=== PATIENT | male | born 1970 | race Caucasian/White ===

== ENCOUNTER 2023-02-15 10:16 | Inpatient (IN) ==
--- NOTE | 2023-02-15 10:23 | Emergency Department Note ---
HPI General Chief complaint: Recheck/Abnormal Lab/Rx Stated complaint: abnormal lab Time Seen by Provider: 02/15/23 10:22 Source: patient Mode of arrival: ambulatory Limitations: no limitations History of Present Illness HPI Narrative: Narrative: Patient is a 52-year-old male with a history of hypertension and hyperlipidemia who presents to the emergency department due to concern for kidney failure. He states that he was supposed to have surgery on his left ankle this morning because of a fracture, but that his labs showed a creatinine of 4.8. He states that this was repeated and still high, so he was sent to the emergency department. He denies any symptoms at this time aside from left ankle pain. He states that he did have imaging a couple of weeks ago because of a similar situation with an elevated creatinine. At that time he was found to have kidney stones, but he did not have any hydronephrosis. He does state that he has been taking a lot of medications for his pain from his ankle fracture. He states that he has been taking naproxen, Motrin, and then was given a prescription for meloxicam. He states that he has taken all of these medications, and has taken them at the same time. He denies any other concerns or symptoms. Related Data Home Medications Medication Instructions Recorded Confirmed ibuprofen 200 mg capsule (Motrin 200 mg PO Q6H PRN 02/19/22 02/11/23 IB) amitriptyline 10 mg tablet 10 mg PO QHS 03/28/22 02/11/23 duloxetine 60 mg capsule,delayed 60 mg PO QDAY 03/28/22 02/11/23 release insulin NPH isoph U-100 human 100 5 unit subcut QAM 03/28/22 02/11/23 unit/mL (3 mL) subcutaneous pen (Novolin N FlexPen) insulin glargine 100 unit/mL (3 55 unit subcut BID 03/28/22 02/11/23 mL) subcutaneous pen lidocaine 5 % topical patch 1 patch topical QDAY 03/28/22 02/11/23 lisinopril 20 mg tablet 20 mg PO QDAY 03/28/22 02/11/23 magnesium oxide 420 mg tablet 420 mg PO QDAY 03/28/22 02/11/23 mercaptopurine 50 mg tablet 50 mg PO QDAY 03/28/22 02/11/23 metformin 1,000 mg tablet 1,000 mg PO BID 03/28/22 02/11/23 sildenafil 100 mg tablet 100 mg PO QDAY PRN 03/28/22 02/11/23 Previous Rx's Medication Instructions Recorded gabapentin 300 mg capsule 300 mg PO TID #90 caps 06/04/22 (Neurontin) cyclobenzaprine 10 mg tablet 10 mg PO BID PRN muscle spasm #30 06/18/22 tabs oxycodone-acetaminophen 10 mg-325 1 tab PO TID PRN pain #90 tabs 06/18/22 mg tablet (Percocet) hydrochlorothiazide 25 mg tablet 25 mg PO QAM #30 tabs 10/25/22 hydrocodone 5 mg-acetaminophen 325 1 - 2 tab PO Q6H PRN pain #12 tabs 12/04/22 mg tablet ondansetron 8 mg disintegrating 8 mg PO Q8H PRN nausea and 12/04/22 tablet vomiting #12 tabs prednisone 20 mg tablet 60 mg PO QDAY Panniculitis #15 tabs 12/04/22 Allergies Allergy/AdvReac Type Severity Reaction Status Date / Time infliximab-dyyb AdvReac Mild Hypotension Verified 02/15/23 08:08 [From Inflectra] Review of Systems ROS ROS Narrative: Narrative: Constitutional: Denies fever or weakness Eyes: Denies eye pain or vision change ENT ED: Denies throat pain or rhinorrhea Cardiovascular: Denies chest pain, dyspnea on exertion, orthopnea or edema Respiratory: Denies shortness of breath or cough Gastrointestinal: Denies abdominal pain, nausea, vomiting, diarrhea, constipation, hematochezia or melena Genitourinary: Denies dysuria, frequency or hematuria Musculoskeletal: Reports joint pain (Left ankle); Denies back pain or myalgia Integumentary: Denies rash or lesions Neurological: Denies headache, weakness, numbness, confusion, abnormal gait or dizziness [facility] Narrative Patient History Narrative: Narrative: Medical/Surgical/Family History All Active Problems (Updated 02/15/23 @ 15:31 by Jake Suazo MD) CHAD (acute kidney injury) (Acute) Anemia (Acute) Anemia, macrocytic (Acute) T2DM (type 2 diabetes mellitus) (Acute) Medial malleolar fracture (Acute) Closed left fibular fracture (Acute) Igquk-vb-wruqhvs kidney injury (Acute) Acute kidney injury (Acute) Panniculitis (Acute) Dehydration (Acute) Nausea, vomiting, and diarrhea (Acute) Abnormal finding on imaging of liver (Acute) Nodule of lower lobe of right lung (Acute) Abdominal pain (Acute) Cervical myelopathy (Acute) PTSD (post-traumatic stress disorder) (Chronic) Depression (Chronic) Anxiety (Chronic) GERD (gastroesophageal reflux disease) (Chronic) Hypertension (Chronic) Ulcerative colitis (Chronic) Rib pain (Chronic) Recurrent major depression (Chronic) Obstructive sleep apnea (Chronic) Other low back pain (Chronic) Injury of long head of biceps (Chronic) Pain of left iliac fossa (Chronic) Knee pain (Chronic) Hypomagnesemia (Chronic) Hyperlipidemia (Chronic) Erectile dysfunction (Chronic) Disorder of nail (Chronic) Diabetes mellitus (Chronic) Closed fracture of one rib (Chronic) Chronic post-traumatic stress disorder (Chronic) Benign essential hypertension (Chronic) Adjustment disorder (Chronic) Hostile behavior (Chronic) Suicidal intent (Chronic) Neck pain (Chronic) Alcohol intoxication (Chronic) Acute neck pain (Chronic) Radiculopathy affecting upper extremity (Chronic) Cervical radiculopathy (Acute) Chronic neck and back pain (Chronic) Alcohol intoxication (Chronic) Acute hyperglycemia (Chronic) Acute dehydration (Chronic) Muscle spasm of back (Chronic) Chronic back pain (Chronic) Herpes zoster (Chronic) Medical History Adjustment disorder Anxiety Benign essential hypertension Cervical myelopathy Chronic back pain Chronic post-traumatic stress disorder Closed fracture of one rib Depression Diabetes mellitus Disorder of nail Erectile dysfunction GERD (gastroesophageal reflux disease) Hostile behavior Hyperlipidemia Hypertension Hypomagnesemia Injury of long head of biceps Knee pain Muscle spasm of back Neck pain Obstructive sleep apnea Other low back pain Pain of left iliac fossa PTSD (post-traumatic stress disorder) Recurrent major depression Rib pain Suicidal intent Ulcerative colitis Surgical History History of appendectomy History of umbilical hernia repair Family History Other No pertinent family history Social History Smoking Status: Never smoker Alcohol Intake Frequency: former alcohol drinker Substance Use: marijuana Exam Narrative Narrative: Narrative: General Limitations: no limitations General appearance: Present alert and in no apparent distress; Absent anxious, appears intoxicated or sleepy Head Head: Present atraumatic and normocephalic Eye Eye: Present EOMI; Absent scleral icterus or nystagmus ENT ENT: Present mucous membranes moist; Absent nasal congestion Neck Neck: Present full ROM and trachea midline Chest Chest: Present normal inspection and symmetric chest wall rise Respiratory Respiratory: Present normal lung sounds bilaterally; Absent respiratory distress, rales/crackles, wheezes, stridor or accessory muscle use Cardiovascular Cardiovascular: Present regular rate, normal rhythm and normal heart sounds Adbominal Abdominal: Present soft; Absent distention Extremities Extremities: Present normal inspection, full ROM and tenderness (Left ankle); Absent pedal edema or pretibial edema Back Back: Present normal inspection and full ROM; Absent tenderness, CVA tenderness (R) or CVA tenderness (L) Neurological Neurological: Present alert and oriented X3 Psychiatric Psychiatric: Present normal affect and normal mood Skin Skin: Present warm (WNL), dry and normal color Course Vital Signs Vital signs: Vital Signs Temperature 97.8 F 02/15/23 10:17 Pulse Rate 89 02/15/23 10:17 Respiratory Rate 17 02/15/23 10:17 Blood Pressure 123/74 02/15/23 10:17 Pulse Oximetry (%) 96 02/15/23 10:17 Oxygen Delivery Method Room Air 02/15/23 10:17 Temperature 98.6 F 02/15/23 14:31 Pulse Rate 89 02/15/23 14:31 Respiratory Rate 17 02/15/23 14:31 Blood Pressure 117/75 02/15/23 14:31 Pulse Oximetry (%) 99 02/15/23 14:31 Oxygen Delivery Method Room Air 02/15/23 10:17 [facility] Narrative Medical decision making narrative: Narrative: Patient is a 52-year-old male with a history of hypertension and hyperlipidemia who presents to the emergency department due to concern for kidney failure. Patient does have an. Differential diagnoses as cause of this CHAD include medication, stone or other cause of kidney or ureteral blockage with hydronephrosis, dehydration, and hypotension. Patient's pressure is reassuring at this time, so hypotension is unlikely. Creatinine was repeated and is 4.6 in the emergency department. Urine dip shows small blood. Urine has been sent to the lab for urinalysis. Patient's hemoglobin is 7.8. After reassessment patient did endorse a significant amount of NSAID use. He states that he has been taking naproxen, Motrin, and meloxicam since Saturday. He states that he has been taking these together. He does endorse NSAID use prior to this, but states that he was only taking NSAIDs approximately every other day. NSAID use is likely the reason for patient's CHAD. A rectal exam was performed and patient is Hemoccult negative. I have spoken to Dr. De Jesus and he is agreed to see and evaluate patient for admission. Lab Data 02/15/23 10:50 Labs: Lab Results 02/15/23 02/15/23 Range/Units 10:50 12:28 WBC 4.0 L (4.5-11.0) K/mcL RBC 2.27 L (4.63-6.08) M/mcL Hgb 7.8 L (13.7-17.5) g/dL Hct 22.9 L (40.1-51.0) % MCV 100.9 H (80.0-100.0) fL MCH 34.4 H (26.0-34.0) pg MCHC 34.1 (31.0-36.0) g/dL RDW 13.6 (11.5-14.5) % Plt Count 214 (140-440) K/mcL MPV 10.7 (8.8-12.5) fL Immature Gran % (Auto) 0.3 (0.0-0.5) % Neut % (Auto) 61.3 (38.0-78.0) % Lymph % (Auto) 24.1 (15.5-49.0) % Harmon % (Auto) 12.8 H (1.0-12.0) % Eos % (Auto) 1.0 (0.0-7.0) % Baso % (Auto) 0.5 (0.0-2.0) % Lymph # (Auto) 0.96 L (1.50-4.80) K/mcL Harmon # (Auto) 0.51 (0.10-0.90) K/mcL Eos # (Auto) 0.04 (0.00-0.70) K/mcL Baso # (Auto) 0.02 (0.00-0.30) K/mcL Immature Gran # 0.01 (0.00-0.05) K/mcl Absolute Neutrophils 2.45 (1.80-8.00) K/mcL Urine Color Yellow Urine Appearance Clear (Clear) Urine pH 5.0 (5.0-9.0) Ur Specific [place] 1.006 (1.000-1.035) Urine Protein Negative (Negative) mg/dL Urine Glucose (UA) Negative (Negative) mg/dL Urine Ketones Negative (Negative) mg/dL Urine Occult Blood 0.03 (Negative) mg/dL Urine Nitrate Negative (Negative) Urine Bilirubin Negative (Negative) mg/dL Urine Urobilinogen Negative mg/dL Ur Leukocyte Esterase Negative (Negative) /uL Urine RBC 1 (0-3) /hpf Urine WBC 2 (0-4) /hpf Ur Squamous Epith Cells < 1 (0-4) /hpf Ur Transition Epith Cell < 1 (0-2) /hpf Urine Bacteria None (0) /hpf Hyaline Casts 1 (0-2) /lph Urine Mucus Few A (None) /hpf Ur Culture Indicated? No Discharge Plan Patient/Caregiver Discharge Instructions Pt seen by ANESTHESIA TECH/PA only: No Clinical Impression: CHAD (acute kidney injury), Anemia Patient Disposition: Xfer As Inpt ([facility]) Discharge Date/Time: 02/15/23 14:37
[2023-02-15] MEDS ORDERED: 0.9 % SODIUM CHLORIDE 1,000 ML IV ONE (10:53)
[2023-02-15] MEDS ORDERED: HYDROmorphone 0.5 MG/0.5 ML SYRINGE IV ONE (11:02)
[2023-02-15 12:16] LABS: Basophils # (Auto) 0.02 K/mcL (0.00-0.30); Basophils % (Auto) 0.5 % (0.0-2.0); Eosinophils # (Auto) 0.04 K/mcL (0.00-0.70); Hematocrit 22.9 % (40.1-51.0); Hemoglobin 7.8 g/dL (13.7-17.5); Lymphocytes # (Auto) 0.96 K/mcL (1.50-4.80); Lymphocytes % (Auto) 24.1 % (15.5-49.0); Mean Cell Volume 100.9 fL (80.0-100.0); Mean Corpuscular HGB Conc 34.1 g/dL (31.0-36.0); Mean Platelet Volume 10.7 fL (8.8-12.5); Monocytes # (Auto) 0.51 K/mcL (0.10-0.90); Monocytes % (Auto) 12.8 % (1.0-12.0); Neutrophils % (Auto) 61.3 % (38.0-78.0); Platelet Count 214 K/mcL (140-440); RBC 2.27 M/mcL (4.63-6.08); Red Cell Distribution Width 13.6 % (11.5-14.5)
--- NOTE | 2023-02-15 12:51 | Ultrasound Report ---
INDICATION: Severe CHAD, unknown cause TECHNIQUE: Grayscale and color flow Doppler spectral imaging. COMPARISON: Previous ultrasound dated 01/31/2023. Previous abdominal and pelvic CT scan dated 12/04/2022 FINDINGS: Right kidney: Right kidney aiyhothj24.3 x 5.2 x 5.4 cm.. There is no hydronephrosis. No solid right renal mass. Renal cortex is normal. Probable 7 mm nonobstructing right upper pole calculus Left kidney: Left kidney efpnuxun07.8 x 5.3 x 6.3 cm. There is no hydronephrosis. No solid left renal mass. Renal cortex is normal. Probable 3 mm nonobstructing left lower pole calculus Bladder: Prevoid bladder mL. Post void bladder volumewas not assessed. No bladder calculi. No detectable mass. Bilateral ureteral jets visualized. Estimated prostatic volume equals 17 mL. This is normal IMPRESSION: 1. Possible nonobstructing calculi bilaterally 2. Otherwise negative renal ultrasound Interpreted and Authenticated by: Helder Madera 02/15/23
--- NOTE | 2023-02-15 13:04 | Nephrology Consult Note ---
HPI Date of Consult Consult Date: 02/15/23 Requesting physician: Jake Suazo Primary Care Provider: Jimmie Montemayor Consult Narrative Patient Information: Note initiated : 02/15/23 at 1:01 pm Patient: Prakash Robles 52 y/o M admitted on for abnormal lab. Chief Complaint: Elevated serum creatinine Prakash Robles is a 52-year-old male with hypertension, diabetes mellitus type 2 and left ankle bimalleolar fracture sent to ED for acute kidney injury. He was scheduled for elective surgery this morning, but it was canceled. In ED, he did not have significant electrolyte abnormalities. He has been taking Meloxicam, Ibuprofen and Naproxen for pain. He was given 1 L NS. Nephrology consultation was requested for acute kidney injury. Chief complaint: Elevated serum creatinine Reason for consult: Acute kidney injury cc:: CC: Constitutional Constitutional: Absent anorexia or weakness EENT Nose, mouth and throat: Absent nasal congestion or sore throat Cardiovascular Cardiovascular: Absent chest pain or palpatations Respiratory Respiratory: Absent dyspnea or wheezing Gastrointestinal Gastrointestinal: Absent abdominal pain, nausea or vomiting Musculoskeletal Additional comments: left ankle pain Integumentary Integumentary: Absent rash or wounds Neurological Neurological: Absent confusion or weakness Psychiatric Psychiatric: Absent anxiety or panic attacks Hematologic/Lymphatic Hematologic/Lymphatic: Absent easy bleeding or easy bruising Allergic/Immunologic Allergic/Immunologic: Absent tongue swelling or uticaria PFSH PFSH All Active Problems (Updated 02/15/23 @ 13:01 by Fariba Suarez MD) Acute kidney injury (Acute) Panniculitis (Acute) Dehydration (Acute) Nausea, vomiting, and diarrhea (Acute) Abnormal finding on imaging of liver (Acute) Nodule of lower lobe of right lung (Acute) Abdominal pain (Acute) Cervical myelopathy (Acute) PTSD (post-traumatic stress disorder) (Chronic) Depression (Chronic) Anxiety (Chronic) GERD (gastroesophageal reflux disease) (Chronic) Hypertension (Chronic) Ulcerative colitis (Chronic) Rib pain (Chronic) Recurrent major depression (Chronic) Obstructive sleep apnea (Chronic) Other low back pain (Chronic) Injury of long head of biceps (Chronic) Pain of left iliac fossa (Chronic) Knee pain (Chronic) Hypomagnesemia (Chronic) Hyperlipidemia (Chronic) Erectile dysfunction (Chronic) Disorder of nail (Chronic) Diabetes mellitus (Chronic) Closed fracture of one rib (Chronic) Chronic post-traumatic stress disorder (Chronic) Benign essential hypertension (Chronic) Adjustment disorder (Chronic) Hostile behavior (Chronic) Suicidal intent (Chronic) Neck pain (Chronic) Alcohol intoxication (Chronic) Acute neck pain (Chronic) Radiculopathy affecting upper extremity (Chronic) Cervical radiculopathy (Acute) Chronic neck and back pain (Chronic) Alcohol intoxication (Chronic) Acute hyperglycemia (Chronic) Acute dehydration (Chronic) Muscle spasm of back (Chronic) Chronic back pain (Chronic) Herpes zoster (Chronic) Medical History Adjustment disorder Anxiety Benign essential hypertension Cervical myelopathy Chronic back pain Chronic post-traumatic stress disorder Closed fracture of one rib Depression Diabetes mellitus Disorder of nail Erectile dysfunction GERD (gastroesophageal reflux disease) Hostile behavior Hyperlipidemia Hypertension Hypomagnesemia Injury of long head of biceps Knee pain Muscle spasm of back Neck pain Obstructive sleep apnea Other low back pain Pain of left iliac fossa PTSD (post-traumatic stress disorder) Recurrent major depression Rib pain Suicidal intent Ulcerative colitis Surgical History History of appendectomy History of umbilical hernia repair Family History Other No pertinent family history Social History marital status: education level: college occupational status: retired occupation: smoking status: Never smoker alcohol intake frequency: former alcohol drinker substance use type: marijuana MEDS/ALLERGIES Home Medications and Allergies Home Medications Medication Instructions Recorded Confirmed Type ibuprofen 200 mg capsule (Motrin 200 mg PO Q6H PRN 02/19/22 02/11/23 History IB) amitriptyline 10 mg tablet 10 mg PO QHS 03/28/22 02/11/23 History duloxetine 60 mg capsule,delayed 60 mg PO QDAY 03/28/22 02/11/23 History release insulin NPH isoph U-100 human 100 5 unit subcut QAM 03/28/22 02/11/23 History unit/mL (3 mL) subcutaneous pen (Novolin N FlexPen) insulin glargine 100 unit/mL (3 55 unit subcut BID 03/28/22 02/11/23 History mL) subcutaneous pen lidocaine 5 % topical patch 1 patch topical QDAY 03/28/22 02/11/23 History lisinopril 20 mg tablet 20 mg PO QDAY 03/28/22 02/11/23 History magnesium oxide 420 mg tablet 420 mg PO QDAY 03/28/22 02/11/23 History mercaptopurine 50 mg tablet 50 mg PO QDAY 03/28/22 02/11/23 History metformin 1,000 mg tablet 1,000 mg PO BID 03/28/22 02/11/23 History sildenafil 100 mg tablet 100 mg PO QDAY PRN 03/28/22 02/11/23 History gabapentin 300 mg capsule 300 mg PO TID #90 caps 06/04/22 02/11/23 Rx (Neurontin) cyclobenzaprine 10 mg tablet 10 mg PO BID PRN muscle spasm #30 06/18/22 02/11/23 Rx tabs oxycodone-acetaminophen 10 mg-325 1 tab PO TID PRN pain #90 tabs 06/18/22 02/11/23 Rx mg tablet (Percocet) hydrochlorothiazide 25 mg tablet 25 mg PO QAM #30 tabs 10/25/22 02/11/23 Rx hydrocodone 5 mg-acetaminophen 325 1 - 2 tab PO Q6H PRN pain #12 tabs 12/04/22 02/11/23 Rx mg tablet ondansetron 8 mg disintegrating 8 mg PO Q8H PRN nausea and 12/04/22 02/11/23 Rx tablet vomiting #12 tabs prednisone 20 mg tablet 60 mg PO QDAY Panniculitis #15 tabs 12/04/22 02/11/23 Rx Allergies Allergy/AdvReac Type Severity Reaction Status Date / Time infliximab-dyyb AdvReac Mild Hypotension Verified 02/15/23 08:08 [From Inflectra] Physical Examination Vital Signs Vital signs: Temp Pulse Resp BP Pulse Ox O2 Del Method 97.8 F 87 17 114/66 97 Room Air 02/15/23 10:17 02/15/23 12:45 02/15/23 10:17 02/15/23 12:45 02/15/23 12:45 02/15/23 10:17 General Appearance General appearance: well-developed and well-nourished EENT EENT: mucous membranes moist Neck Neck: no JVD Respiratory Respiratory: clear Cardiovascular Cardiology: no edema, regular rate and regular rhythm Gastrointestinal Gastrointestinal: no tenderness Integumentary Integumentary: warm and dry Neurologic Neurologic: no focal deficit and alert and oriented x3 Psychiatric Psychiatric: mood/affect appropriate and cooperative Results Lab Results 02/15/23 10:50 A/P Assessment and plan (1) Acute kidney injury: Assessment and plan: Prakash Robles is a 52-year-old male with hypertension, diabetes mellitus type 2 and left ankle bimalleolar fracture sent to ED for acute kidney injury. He was scheduled for elective surgery this morning, but it was canceled. In ED, he did not have significant electrolyte abnormalities. He has been taking Meloxicam, Ibuprofen and Naproxen for pain. He was given 1 L NS. Nephrology consultation was requested for acute kidney injury. Acute kidney injury associated with NSAID use while taking Lisinopril and HCTZ, present on arrival. Suspected mild chronic kidney disease due to diabetes mellitus type 2 and hypertension. Work up: Urinalysis on 02/15/23: Pending. Renal US on 02/15/23:Possible nonobstructing calculi bilaterally. Otherwise negative renal ultrasound Progress: Serum creatinine increased to 4.0 on 02/15/23. Baseline serum creatinine: 1.0 in 2020 and 2021, 1.3 on 12/04/22. Urine output: Reported in ED. No fluid overload. No uremic symptoms. Recommendations/Plan: No acute hemodialysis need. Avoid NSAIDs, nephrotoxic medications and IV contrast. Monitor BMP and urine output. Status: Acute Time Spent With Patient Time: Total time spent is greater than 50% in coordination of care (as documented) at patient's floor/unit and/or counseling patient:
[2023-02-15 14:11] LABS: Appearance,Urine CLEAR (Clear); Bilirubin,Urine Negative (Negative); Color,Urine YELLOW; Culture Indicated,Urine No; Glucose,Urine (UA) Negative (Negative); Ketones,Urine Negative (Negative); Leukocyte Esterase,Urine Negative /uL (Negative); Mucus,Urine FEW /hpf; Nitrate,Urine Negative (Negative); Protein,Urine Negative (Negative); Specific Gravity,Urine 1.006 (1.000-1.035); Urine Blood 0.03 mg/dL (Negative); Urine Hyaline Cast 1 /lph (0-2); Urine RBC 1 /hpf (0-3); Urine Squamous Epithelial Cell < 1 /hpf (0-4); Urine Transitional Epi Cells < 1 /hpf (0-2); Urine WBC 2 /hpf (0-4); Urobilinogen,Urine Negative
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
[2023-02-15] MEDS ORDERED: DEXTROSE 50% 50 ML VIAL IV PRN (14:42)
[2023-02-15] MEDS ORDERED: IPRATROPIUM/ALBUTEROL 3 ML AMPUL.NEB NEB PRN (14:42)
[2023-02-15] MEDS ORDERED: DEXTROSE 31 GM ORAL.SUSP PO PRN (14:42)
[2023-02-15] MEDS ORDERED: ONDANSETRON 4 MG/2 ML VIAL IV PRN (14:42)
[2023-02-15] MEDS ORDERED: hydrALAZINE 20 MG/ML VIAL IV PRN (14:42)
[2023-02-15] MEDS: morphine 4 MG/ML VIAL IV PRN ×3 (14:52→23:28)
[2023-02-15] MEDS: 0.9 % SODIUM CHLORIDE 1,000 ML IV SCH ×2 (14:54→23:29)
[2023-02-15 16:04] LABS: Iron 42 ug/dL (61-157); TIBC Calculation 214 ug/dl (228-428); Transferrin % Saturation 20 % (20-50)
[2023-02-15 16:53] LABS: Ferritin 251.5 ng/mL (30.0-400.0)
[2023-02-15] MEDS: oxyCODONE HCL 5 MG TABLET PO PRN ×2 (16:59→21:46)
[2023-02-15] MEDS: INSULIN LISPRO 1 UNIT/0.01 ML UNIT SQ SCH ×2 (17:00→21:46)
[2023-02-15] MEDS ORDERED: INSULIN SUB-Q SCH (21:00)
[2023-02-15] MEDS ORDERED: [UNRECOGNIZED DRUG - OTHER] SUB-Q SCH (21:00)
[2023-02-15] MEDS ORDERED: INSULIN GLARGINE 100 UNIT/ML SUB-Q SCH (21:00)
[2023-02-15] MEDS ORDERED: traZODone HCL 50 MG TABLET PO PRN (21:00)
[2023-02-15] MEDS: SENNOSIDES 1 TABLET PO SCH (21:35)
[2023-02-15] MEDS: DOCUSATE SODIUM 100 MG CAPSULE PO SCH (21:35)
[2023-02-15] MEDS ORDERED: INSULIN GLARGINE, HUMAN 1 UNIT/0.01 ML SQ ONE (21:44)
[2023-02-15] MEDS: INSULIN GLARGINE, HUMAN 1 UNIT/0.01 ML SQ SCH (21:45)
[2023-02-15] MEDS: PANTOPRAZOLE 40 MG TABLET PO SCH (21:46)
[2023-02-15] MEDS: 0.9 % SODIUM CHLORIDE 10 ML SYRINGE IV SCH (21:47)
[2023-02-15] MEDS: AMITRIPTYLINE 10 MG TABLET PO SCH (22:12)
[2023-02-16] MEDS: oxyCODONE HCL 5 MG TABLET PO PRN ×6 (01:46→23:32)
[2023-02-16] MEDS: morphine 4 MG/ML VIAL IV PRN ×5 (05:08→22:22)
[2023-02-16 06:10] LABS: Basophils # (Auto) 0.03 K/mcL (0.00-0.30); Basophils % (Auto) 0.7 % (0.0-2.0); Eosinophils # (Auto) 0.08 K/mcL (0.00-0.70); Eosinophils % (Auto) 1.8 % (0.0-7.0); Hematocrit 24.8 % (40.1-51.0); Lymphocytes # (Auto) 1.36 K/mcL (1.50-4.80); Lymphocytes % (Auto) 30.2 % (15.5-49.0); Mean Cell Volume 103.3 fL (80.0-100.0); Mean Corpuscular HGB Conc 32.3 g/dL (31.0-36.0); Mean Platelet Volume 10.3 fL (8.8-12.5); Monocytes # (Auto) 0.62 K/mcL (0.10-0.90); Monocytes % (Auto) 13.7 % (1.0-12.0); Neutrophils % (Auto) 53.4 % (38.0-78.0); Platelet Count 230 K/mcL (140-440); Red Cell Distribution Width 13.8 % (11.5-14.5); WBC 4.5 K/mcL (4.5-11.0)
[2023-02-16] MEDS: 0.9 % SODIUM CHLORIDE 10 ML SYRINGE IV SCH ×3 (06:17→20:31)
[2023-02-16 06:29] LABS: ALT/SGPT 21 U/L (<40); AST/SGOT 14 U/L (<40); Albumin 3.8 gm/dL (3.2-5.2); Albumin/Globulin Ratio 1.4 (1.0-2.3); Alkaline Phosphatase 53 U/L (39-117); Bilirubin,Total 0.2 mg/dL (0.1-1.0); Blood Urea Nitrogen 44 mg/dL (6-20); Calcium 8.7 mg/dL (8.6-10.4); Carbon Dioxide 24 mmol/L (22-30); Chloride 101 mmol/L (96-108); Globulin 2.8 gm/dL (2.2-3.7); Glomerular Filtration Rate 19; Glucose 126 mg/dL (70-105)
[2023-02-16 06:40] LABS: Estimated Average Glucose(eAG) 200 mg/dL; Hemoglobin A1C 8.6 % Hgb (4.0-6.0)
[2023-02-16] MEDS: INSULIN LISPRO 1 UNIT/0.01 ML UNIT SQ SCH ×4 (06:59→20:30)
--- NOTE | 2023-02-16 07:03 | Nephrology Progress Note ---
SUBJECTIVE Subjective Patient information: Note initiated : 02/16/23 at 7:01 am Patient: Prakash Robles 52 y/o M admitted on 02/15/23 for abnormal lab. Chief Complaint: Left ankle pain Pertinent ROS: Left ankle pain Constitutional Vitals: Vital Signs Temp Pulse Resp BP Pulse Ox O2 Del Method 97.9 F 80 16 126/75 97 Room Air 02/16/23 03:40 02/16/23 03:40 02/16/23 03:40 02/16/23 03:40 02/16/23 03:40 02/16/23 03:40 Period Temp Pulse Resp BP Sys/Barron Pulse Ox O2 Del Method O2 Flow Rate Last 24 Hr 97.8 F-98.6 F 80-92 16-18 108-126/56-84 87-100 Room Air-Room Air Intake and Output 02/15/23 02/16/23 02/16/23 19:59 03:59 11:59 Intake Total 1480 1458 Output Total 500 975 275 Balance 980 483 -275 Weight 184 lb 187 lb 8 oz Intake & Output: Intake & Output 02/15/23 02/16/23 02/16/23 19:59 03:59 11:59 Intake Total 1480 1458 Output Total 500 975 275 Balance 980 483 -275 Weight 184 lb 187 lb 8 oz Intake: IV 1000 858 Sodium Chloride 0.9% 1,000 ml @ 1000 858 100 mls/hr IV .Q10H [facility] Rx#: [id number] Oral 480 600 Output: Void Amount 500 975 275 Other: Meal Lunch Percent of Meal Consumed 100% Feeding Ability Independent Urine Appearance Clear Clear Clear Urine Color Yellow Yellow Yellow General appearance: cooperative and no acute distress Head Head exam: Present normal inspection Eye Eye exam: Present normal appearance ENT ENT exam: Present mucous membranes moist Respiratory Respiratory exam: Absent respiratory distress Cardiovascular Cardiovascular exam: Present normal rate and rhythm GI/Abdominal GI/Abdominal exam: Present soft; Absent tenderness Extremities Exam Extremities exam: Present joint swelling (left ankle) Neurological Exam Neurological exam: Present alert and oriented X3 Psychiatric Psychiatric exam: Present normal affect and normal mood Skin Skin exam: Present warm; Absent rash A/P Assessment and plan (1) Acute kidney injury: Assessment and plan: Prakash Robles is a 52-year-old male with hypertension, diabetes mellitus type 2 and left ankle bimalleolar fracture sent to ED for acute kidney injury. He was scheduled for elective surgery this morning, but it was canceled. In ED, he did not have significant electrolyte abnormalities. He has been taking Meloxicam, Ibuprofen and Naproxen for pain. He was given 1 L NS. Nephrology consultation was requested for acute kidney injury. Acute kidney injury associated with NSAID use while taking Lisinopril and HCTZ, present on arrival. Suspected mild chronic kidney disease due to diabetes mellitus type 2 and hypertension. Work up: Urinalysis on 02/15/23: Yellow, clear, pH 5.0, SG 1.006, protein negative, blood 0.03, leukocyte esterase negative. Renal US on 02/15/23:Possible nonobstructing calculi bilaterally. Otherwise negative renal ultrasound. Progress: Serum creatinine decreased to 4.0 to 3.5 in the past 24 hours. Baseline serum creatinine: 1.0 in 2020 and 2021, 1.3 on 12/04/22. Urine output: 1475 ml reported in the past 24 hours. No fluid overload. No uremic symptoms. Recommendations/Plan: Anticipate no acute hemodialysis need. Avoid NSAIDs, nephrotoxic medications and IV contrast. Monitor BMP and urine output. Status: Acute Time Spent With Patient Time: Total time spent is greater than 50% in coordination of care (as documented) at patient's floor/unit and/or counseling patient:
[2023-02-16] MEDS: INSULIN GLARGINE, HUMAN 1 UNIT/0.01 ML SQ SCH (08:57)
[2023-02-16] MEDS: amLODIPine 10 MG TABLET PO SCH (08:58)
[2023-02-16] MEDS: DULoxetine 30 MG CAPSULE PO SCH (08:58)
[2023-02-16] MEDS: DOCUSATE SODIUM 100 MG CAPSULE PO SCH ×2 (08:58→20:31)
[2023-02-16] MEDS: MAGNESIUM OXIDE 400 MG TABLET PO SCH (08:58)
[2023-02-16] MEDS: LIDOCAINE PATCH TOPICAL SCH (08:59)
[2023-02-16] MEDS: MERCAPTOPURINE 50 MG TABLET PO SCH (08:59)
[2023-02-16] MEDS: 0.9 % SODIUM CHLORIDE 1,000 ML IV SCH ×2 (09:01→19:08)
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
[2023-02-16] MEDS: AMITRIPTYLINE 10 MG TABLET PO SCH (20:31)
[2023-02-16] MEDS: PANTOPRAZOLE 40 MG TABLET PO SCH (20:31)
[2023-02-16] MEDS: SENNOSIDES 1 TABLET PO SCH (20:31)
[2023-02-16] MEDS ORDERED: INSULIN GLARGINE, HUMAN 1 UNIT/0.01 ML SQ SCH (21:00)
[2023-02-17] MEDS: morphine 4 MG/ML VIAL IV PRN ×6 (01:49→23:53)
[2023-02-17] MEDS: oxyCODONE HCL 5 MG TABLET PO PRN ×5 (03:42→21:27)
[2023-02-17] MEDS: 0.9 % SODIUM CHLORIDE 1,000 ML IV SCH ×4 (03:53→23:53)
[2023-02-17] MEDS: 0.9 % SODIUM CHLORIDE 10 ML SYRINGE IV SCH ×3 (05:25→21:27)
[2023-02-17 06:20] LABS: Basophils # (Auto) 0.02 K/mcL (0.00-0.30); Basophils % (Auto) 0.4 % (0.0-2.0); Eosinophils # (Auto) 0.12 K/mcL (0.00-0.70); Eosinophils % (Auto) 2.4 % (0.0-7.0); Hematocrit 21.2 % (40.1-51.0); Hemoglobin 7.2 g/dL (13.7-17.5); Lymphocytes # (Auto) 1.55 K/mcL (1.50-4.80); Lymphocytes % (Auto) 31.2 % (15.5-49.0); Mean Cell Volume 101.9 fL (80.0-100.0); Mean Platelet Volume 10.3 fL (8.8-12.5); Monocytes # (Auto) 0.67 K/mcL (0.10-0.90); Monocytes % (Auto) 13.5 % (1.0-12.0); Neutrophils % (Auto) 52.1 % (38.0-78.0); Platelet Count 230 K/mcL (140-440); RBC 2.08 M/mcL (4.63-6.08); Red Cell Distribution Width 13.8 % (11.5-14.5)
[2023-02-17 07:12] LABS: ALT/SGPT 14 U/L (<40); AST/SGOT 13 U/L (<40); Albumin 3.6 gm/dL (3.2-5.2); Albumin/Globulin Ratio 1.4 (1.0-2.3); Alkaline Phosphatase 49 U/L (39-117); Bilirubin,Total < 0.2 mg/dL (0.1-1.0); Blood Urea Nitrogen 34 mg/dL (6-20); Calcium 8.7 mg/dL (8.6-10.4); Carbon Dioxide 25 mmol/L (22-30); Chloride 106 mmol/L (96-108); Globulin 2.6 gm/dL (2.2-3.7); Glomerular Filtration Rate 27; Glucose 37 mg/dL (70-105)
[2023-02-17] MEDS: INSULIN LISPRO 1 UNIT/0.01 ML UNIT SQ SCH ×4 (07:23→20:55)
[2023-02-17] MEDS: amLODIPine 10 MG TABLET PO SCH (08:29)
[2023-02-17] MEDS: DOCUSATE SODIUM 100 MG CAPSULE PO SCH ×2 (08:29→21:27)
[2023-02-17] MEDS: DULoxetine 30 MG CAPSULE PO SCH (08:29)
[2023-02-17] MEDS: MAGNESIUM OXIDE 400 MG TABLET PO SCH (08:31)
[2023-02-17] MEDS ORDERED: INSULIN GLARGINE, HUMAN 1 UNIT/0.01 ML SQ SCH (09:00)
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
[2023-02-17] MEDS: LIDOCAINE PATCH TOPICAL SCH (09:52)
[2023-02-17] MEDS: MERCAPTOPURINE 50 MG TABLET PO SCH (09:52)
--- NOTE | 2023-02-17 12:01 | Nephrology Progress Note ---
SUBJECTIVE Subjective Patient information: Note initiated : 02/17/23 at 12:00 pm Service Date, if different from initiated Date: [] Patient: Prakash Robles 52 y/o M admitted on 02/15/23 for abnormal lab. Chief Complaint: [Cancelled surgery due to anemia and ARF] Principal diagnosis: ARF Interval history: Seen, examined and data reviewed. 52-year-old male with hypertension, diabetes mellitus type 2 and left ankle bim alleolar fracture sent to ED for acute kidney injury. He was scheduled for elective surgery this morning, but it was canceled. In ED, he did not have significant electrolyte abnormalities. He has been taking Meloxicam, Ibuprofen and Naproxen for pain. He was given 1 L NS. Nephrology consultation was requested for acute kidney injury. Also has a marked macrocytic andemia and is no stranger to EtOH intoxication based on prior EtOH levels. Renal U/S is negative and GFR improving with time and absence of NSAIDS and Kowalski II inhibitors. Serum Creatinine HgB (Gm/dl) EtOH Pertinent ROS: Low BG this AM Additional PMFSH (Level 3 Only): Nothing new Constitutional Vitals: Vital Signs Temp Pulse Resp BP Pulse Ox O2 Del Method 36.4 C 85 18 125/73 100 Room Air 02/17/23 11:28 02/17/23 11:28 02/17/23 11:28 02/17/23 11:28 02/17/23 11:28 02/17/23 11:28 Period Temp Pulse Resp BP Sys/Barron Pulse Ox O2 Del Method O2 Flow Rate Last 24 Hr 36.4 C-37.0 C 79-87 16-18 111-125/62-77 95-100 Room Air-Room Air Intake and Output 02/17/23 02/17/23 02/17/23 03:59 11:59 19:59 Intake Total 2705 940 Output Total 2750 600 Balance -45 340 Weight 86.364 kg Intake & Output: Intake & Output 02/17/23 02/17/23 02/17/23 03:59 11:59 19:59 Intake Total 2705 940 Output Total 2750 600 Balance -45 340 Weight 86.364 kg Intake: IV 875 Sodium Chloride 0.9% 1,000 ml @ 875 100 mls/hr IV .Q10H [facility] Rx#: [id number] Oral 1830 940 Output: Void Amount 2750 600 Other: Meal applejuice Breakfast Percent of Meal Consumed 100% 100% Feeding Ability Independent Independent Urine Appearance Clear Clear Urine Color Yellow Yellow General appearance: cooperative and no acute distress Head Head exam: Present normal inspection Eye Eye exam: Present normal appearance ENT ENT exam: Present mucous membranes moist Respiratory Respiratory exam: Absent respiratory distress Cardiovascular Cardiovascular exam: Present normal rate and rhythm GI/Abdominal GI/Abdominal exam: Present soft; Absent tenderness Extremities Exam Extremities exam: Present joint swelling (left ankle) Neurological Exam Neurological exam: Present alert and oriented X3 Psychiatric Psychiatric exam: Present normal affect and normal mood Skin Skin exam: Present warm; Absent rash A/P Assessment and plan (1) CHAD (acute kidney injury): Assessment and plan: * The hat trick of ARF => ACEi and Dehydration (HCTZ and poor po intake and vomiting from pain) + KOWALSKI II inhibitors and NSAIDS = ARF from decreased renal perfusion Plan: Avoid NASIDS/KOWALSKI II inhibitor and RAASI therapy Status: Acute Comment: Will get better No objection to surgery as long as you avoid NSAIDs/KOWALSKI II inhibitors and keep hydrated with NS (2) Anemia: Assessment and plan: Are you going to evaluate this as it is as acute as the decline in GFR? Say he quite drinking but MCV > 100 makes me doubt this. NSAIDS/KOWALSKI II inhibitors scream gastritis or gastric ulcer Plan: Up to primary service Status: Acute Narrative A/P Narrative: Poly Rx ARF as outlined above. Avoid dehydration, RAASI therapy and NSAIDS all at once. I wouldn't use NSAIDs or Kowalski II inhibitors in a patient with HgB 12 => 7 until I did EGD. Time Spent With Patient Time: Total time spent is greater than 50% in coordination of care (as documented) at patient's floor/unit and/or counseling patient: Initial: Total time with patient: 55 - 74 minutes
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
[2023-02-17] MEDS: SENNOSIDES 1 TABLET PO SCH (21:26)
[2023-02-17] MEDS: AMITRIPTYLINE 10 MG TABLET PO SCH (21:27)
[2023-02-17] MEDS: PANTOPRAZOLE 40 MG TABLET PO SCH (21:27)
[2023-02-18] MEDS: oxyCODONE HCL 5 MG TABLET PO PRN ×4 (02:04→20:46)
[2023-02-18] MEDS: 0.9 % SODIUM CHLORIDE 1,000 ML IV SCH ×3 (02:43→14:19)
[2023-02-18] MEDS: 0.9 % SODIUM CHLORIDE 10 ML SYRINGE IV SCH ×3 (05:28→20:47)
[2023-02-18] MEDS: morphine 4 MG/ML VIAL IV PRN ×5 (06:45→23:23)
[2023-02-18 07:06] LABS: Retic Absolute 0.03 M/mcL (0.03-0.11)
[2023-02-18 07:13] LABS: Basophils # (Auto) 0.03 K/mcL (0.00-0.30); Basophils % (Auto) 0.8 % (0.0-2.0); Eosinophils # (Auto) 0.12 K/mcL (0.00-0.70); Hematocrit 20.8 % (40.1-51.0); Hemoglobin 6.8 g/dL (13.7-17.5); Lymphocytes # (Auto) 1.29 K/mcL (1.50-4.80); Lymphocytes % (Auto) 32.5 % (15.5-49.0); Mean Cell Volume 103.5 fL (80.0-100.0); Mean Corpuscular HGB Conc 32.7 g/dL (31.0-36.0); Mean Platelet Volume 10.3 fL (8.8-12.5); Monocytes % (Auto) 10.1 % (1.0-12.0); Neutrophils % (Auto) 53.3 % (38.0-78.0); Platelet Count 250 K/mcL (140-440); RBC 2.01 M/mcL (4.63-6.08); Red Cell Distribution Width 13.8 % (11.5-14.5)
[2023-02-18] MEDS ORDERED: 0.9 % SODIUM CHLORIDE 250 ML IV SCH (07:30)
[2023-02-18 08:06] LABS: ALT/SGPT 13 U/L (<40); AST/SGOT 15 U/L (<40); Albumin 3.3 gm/dL (3.2-5.2); Albumin/Globulin Ratio 1.4 (1.0-2.3); Alkaline Phosphatase 49 U/L (39-117); Bilirubin,Direct < 0.2 mg/dL (0-0.3); Bilirubin,Total 0.2 mg/dL (0.1-1.0); Blood Urea Nitrogen 25 mg/dL (6-20); Calcium 8.7 mg/dL (8.6-10.4); Carbon Dioxide 22 mmol/L (22-30); Chloride 103 mmol/L (96-108); Globulin 2.4 gm/dL (2.2-3.7); Glomerular Filtration Rate 35; Glucose 102 mg/dL (70-105); Lactate Dehydrogenase 178 U/L (135-225); Phosphorous 4.3 mg/dL (2.5-4.5); Triglycerides 241 mg/dL (<150)
[2023-02-18] MEDS ORDERED: MAGNESIUM SULFATE 8.12 MEQ in DEXTROSE 5% IN WATER 50 ML IV ONE (08:18)
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
[2023-02-18 08:20] LABS: Ferritin 218.1 ng/mL (30.0-400.0)
[2023-02-18] MEDS: DULoxetine 30 MG CAPSULE PO SCH (08:49)
[2023-02-18] MEDS: amLODIPine 10 MG TABLET PO SCH (08:50)
[2023-02-18] MEDS: DOCUSATE SODIUM 100 MG CAPSULE PO SCH ×2 (08:50→20:46)
[2023-02-18] MEDS: MAGNESIUM OXIDE 400 MG TABLET PO SCH (08:51)
[2023-02-18] MEDS: LIDOCAINE PATCH TOPICAL SCH (08:52)
[2023-02-18] MEDS: INSULIN LISPRO 1 UNIT/0.01 ML UNIT SQ SCH ×4 (08:53→20:45)
--- NOTE | 2023-02-18 09:46 | Nephrology Progress Note ---
SUBJECTIVE Subjective Patient information: Note initiated : 02/18/23 at 9:43 am Service Date, if different from initiated Date: [] Patient: Prakash Robles 52 y/o M admitted on 02/15/23 for abnormal lab. Chief Complaint: [abnormal labs and surgery cancelled] Principal diagnosis: ARF and Acute blood loss anemia with high MCV Interval history: Seen, examined and Data reviewed. Stopped the trilogy of HCTZ, Lisinopril and KOWALSKI 2 inhibitors and NSAIDs with slowly improving GFR. Acute renal failure and acute blood loss anemia are the active issues...GFR is improving but the HgB is not and has Guiaic (+) stool with NSAIDs/kowalski II inhibitors and EtOH use HgB Serum Creatinine Pertinent ROS: Guiaic (+) stool and decreasing HgB Additional PMFSH (Level 3 Only): N/A Constitutional Vitals: Vital Signs Temp Pulse Resp BP Pulse Ox O2 Del Method 36.5 C 87 18 138/82 96 Room Air 02/18/23 07:31 02/18/23 07:31 02/18/23 07:31 02/18/23 07:31 02/18/23 07:31 02/18/23 07:31 Period Temp Pulse Resp BP Sys/Barron Pulse Ox O2 Del Method O2 Flow Rate Last 24 Hr 36.4 C-37.0 C 85-90 16-18 125-138/69-82 96-100 Room Air-Room Air Intake and Output 02/17/23 02/18/23 02/18/23 19:59 03:59 11:59 Intake Total 3460 2440 Output Total 2700 1450 700 Balance 760 990 -700 Weight 87.407 kg Intake & Output: Intake & Output 02/17/23 02/18/23 02/18/23 19:59 03:59 11:59 Intake Total 3460 2440 Output Total 2700 1450 700 Balance 760 990 -700 Weight 87.407 kg Intake: IV 1000 985 Sodium Chloride 0.9% 1,000 ml @ 1000 985 100 mls/hr IV .Q10H [facility] Rx#: [id number] Oral 2460 1455 Output: Void Amount 2700 1450 700 Other: Meal Dinner 1x peanut butter, 2x OJ, 1x milk, 1/2 cup egg salad Percent of Meal Consumed 50% 100% Feeding Ability Independent Independent Urine Appearance Clear Clear Clear Urine Color Yellow Yellow Yellow Stool Size Moderate Large Stool Color Brown Brown Stool Consistency Soft Soft # Voids 1 # Bowel Movements 1 1 General appearance: average body habitus Head Head exam: Present normocephalic Eye Eye exam: Present EOMI and PERRL ENT ENT exam: Present mucous membranes moist Neck Neck exam: Present normal inspection Respiratory Respiratory exam: Present CTAB Cardiovascular Cardiovascular exam: Present normal rate and rhythm, +S1 and +S2 GI/Abdominal GI/Abdominal exam: Present normal bowel sounds Extremities Exam Extremities exam: Present tenderness and Foot pink and warm; Absent pedal edema Neurological Exam Neurological exam: Present CN II-XII intact and oriented X3 Psychiatric Psychiatric exam: Present normal affect Skin Skin exam: Present dry and intact A/P Assessment and plan (1) CHAD (acute kidney injury): Assessment and plan: * The hat trick of ARF => ACEi and Dehydration (HCTZ and poor po intake and vomiting from pain) + KOWALSKI II inhibitors and NSAIDS = ARF from decreased renal perfusion Plan: Avoid NASIDS/KOWALSKI II inhibitor and RAASI therapy Status: Acute Comment: Will get better No objection to surgery as long as you avoid NSAIDs/KOWALSKI II inhibitors and keep hydrated with NS Probably has an element of ATN with polyuria (2) Anemia: Assessment and plan: Are you going to evaluate this as it is as acute as the decline in GFR? Say he quite drinking but MCV > 100 makes me doubt this. NSAIDS/KOWALSKI II inhibitors scream gastritis or gastric ulcer Guiaic positive stool Plan: Up to primary service S/P pRBCs x 2 Status: Acute Comment: Suspect NSAID induced gastritis/ulcer Not anemia of CKD as he does not have CKD Retic count low, iron borderline, B12/Folate WNL but MCV increased (?EtOH) Narrative A/P Narrative: Poly Rx ARF as outlined above. Avoid dehydration, RAASI therapy and NSAIDS all at once. I wouldn't use NSAIDs or Kowalski II inhibitors in a patient with HgB 12 => 7 until I did EGD. Plan of Treatment: No objection to ortho procedure. Time Spent With Patient Time: Total time spent is greater than 50% in coordination of care (as documented) at patient's floor/unit and/or counseling patient: Initial: Total time with patient: 55 - 74 minutes
[2023-02-18] MEDS ORDERED: diphenhydrAMINE 50 MG/ML VIAL IV ONE (10:26)
[2023-02-18] MEDS ORDERED: ACETAMINOPHEN 325 MG TABLET PO ONE (10:27)
[2023-02-18] MEDS: MERCAPTOPURINE 50 MG TABLET PO SCH (10:28)
[2023-02-18] MEDS: PANTOPRAZOLE 40 MG TABLET PO SCH (20:45)
[2023-02-18] MEDS: AMITRIPTYLINE 10 MG TABLET PO SCH (20:45)
[2023-02-18] MEDS: SENNOSIDES 1 TABLET PO SCH (20:47)
[2023-02-19] MEDS: oxyCODONE HCL 5 MG TABLET PO PRN ×4 (01:01→22:57)
[2023-02-19] MEDS: morphine 4 MG/ML VIAL IV PRN ×3 (03:22→11:49)
[2023-02-19] MEDS: 0.9 % SODIUM CHLORIDE 1,000 ML IV SCH ×2 (03:22→17:45)
[2023-02-19] MEDS: 0.9 % SODIUM CHLORIDE 10 ML SYRINGE IV SCH ×3 (06:54→21:37)
[2023-02-19 08:01] LABS: Basophils # (Auto) 0.02 K/mcL (0.00-0.30); Basophils % (Auto) 0.4 % (0.0-2.0); Eosinophils # (Auto) 0.13 K/mcL (0.00-0.70); Eosinophils % (Auto) 2.9 % (0.0-7.0); Hematocrit 27.3 % (40.1-51.0); Hemoglobin 9.3 g/dL (13.7-17.5); Lymphocytes # (Auto) 1.31 K/mcL (1.50-4.80); Lymphocytes % (Auto) 29.3 % (15.5-49.0); Mean Cell Volume 93.8 fL (80.0-100.0); Mean Corpuscular HGB Conc 34.1 g/dL (31.0-36.0); Mean Platelet Volume 9.7 fL (8.8-12.5); Monocytes # (Auto) 0.57 K/mcL (0.10-0.90); Monocytes % (Auto) 12.8 % (1.0-12.0); Neutrophils % (Auto) 54.4 % (38.0-78.0); Platelet Count 282 K/mcL (140-440); RBC 2.91 M/mcL (4.63-6.08); Red Cell Distribution Width 16.3 % (11.5-14.5); WBC 4.5 K/mcL (4.5-11.0)
[2023-02-19] MEDS: INSULIN LISPRO 1 UNIT/0.01 ML UNIT SQ SCH ×4 (08:05→21:25)
[2023-02-19] MEDS: amLODIPine 10 MG TABLET PO SCH (08:05)
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
[2023-02-19 08:16] LABS: Blood Urea Nitrogen 27 mg/dL (6-20); Calcium 8.8 mg/dL (8.6-10.4); Carbon Dioxide 25 mmol/L (22-30); Chloride 101 mmol/L (96-108); Glomerular Filtration Rate 33; Glucose 152 mg/dL (70-105)
--- NOTE | 2023-02-19 09:11 | Nephrology Progress Note ---
SUBJECTIVE Subjective Patient information: Note initiated : 02/19/23 at 9:09 am Service Date, if different from initiated Date: [] Patient: Prakash Robles 52 y/o M admitted on 02/15/23 for abnormal lab. Chief Complaint: [surgery cancelled due to anemia and renal failure] Principal diagnosis: ARF and Acute blood loss anemia with high MCV Interval history: Seen examined and data reviewed. Must have element of ATN as SCr leveling out at 2 mg/dl. Could take a while to reach baseline. HgB Serum Creatinine Pertinent ROS: Nothing new Additional PMFSH (Level 3 Only): N/A Constitutional Vitals: Vital Signs Temp Pulse Resp BP Pulse Ox O2 Del Method 36.8 C 88 14 123/83 100 Room Air 02/19/23 07:11 02/19/23 07:11 02/19/23 03:28 02/19/23 07:11 02/19/23 07:11 02/19/23 07:11 Period Temp Pulse Resp BP Sys/Barron Pulse Ox O2 Del Method O2 Flow Rate Last 24 Hr 36.4 C-36.8 C 78-88 14-18 120-145/77-85 95-100 Room Air-Room Air Intake and Output 02/18/23 02/19/23 02/19/23 19:59 03:59 11:59 Intake Total 550 1400 240 Output Total 646 209 7097 Balance -200 975 -1110 Weight 88.269 kg Intake & Output: Intake & Output 02/18/23 02/19/23 02/19/23 19:59 03:59 11:59 Intake Total 550 1400 240 Output Total 222 445 2904 Balance -200 975 -1110 Weight 88.269 kg Intake: IV 1000 Sodium Chloride 0.9% 1,000 ml @ 1000 75 mls/hr IV .[id number] [facility] Rx#: [id number] Oral 550 400 240 Output: Void Amount [phone] Other: Urine Appearance Clear Clear Clear Urine Color Yellow Yellow Yellow General appearance: average body habitus Head Head exam: Present normocephalic Eye Eye exam: Present EOMI and PERRL ENT ENT exam: Present mucous membranes moist Neck Neck exam: Present normal inspection Respiratory Respiratory exam: Present CTAB Cardiovascular Cardiovascular exam: Present normal rate and rhythm, +S1 and +S2 GI/Abdominal GI/Abdominal exam: Present normal bowel sounds Extremities Exam Extremities exam: Present tenderness and Foot pink and warm; Absent pedal edema Neurological Exam Neurological exam: Present CN II-XII intact and oriented X3 Psychiatric Psychiatric exam: Present normal affect Skin Skin exam: Present dry and intact A/P Assessment and plan (1) CHAD (acute kidney injury): Assessment and plan: * The hat trick of ARF => ACEi and Dehydration (HCTZ and poor po intake and vomiting from pain) + KOWALSKI II inhibitors and NSAIDS = ARF from decreased renal perfusion. * Probably has some ATN with SCr "stuck" at 2 mg/dl Plan: Avoid NASIDS/KOWALSKI II inhibitor and RAASI therapy Status: Acute Comment: Will get better No objection to surgery as long as you avoid NSAIDs/KOWALSKI II inhibitors and keep hydrated with NS Probably has an element of ATN with polyuria (2) Anemia: Assessment and plan: Says he quite drinking but MCV > 100 makes me doubt this. NSAIDS/KOWALSKI II inhibitors scream gastritis or gastric ulcer Guiaic positive stool Plan: Primary service has given S/P pRBCs x 2 Status: Acute Comment: Suspect NSAID induced gastritis/ulcer Not anemia of CKD as he does not have CKD Retic count low, iron borderline, B12/Folate WNL but MCV increased (?EtOH) Narrative A/P Narrative: Poly Rx ARF as outlined above. Avoid dehydration, RAASI therapy and NSAIDS all at once. I wouldn't use NSAIDs or Kowalski II inhibitors in a patient with HgB 12 => 7 until I did EGD and his GFR return to normal. OK for surgery and or discharge from renal point af view Plan of Treatment: No objection to ortho procedure. Time Spent With Patient Time: Total time spent is greater than 50% in coordination of care (as documented) at patient's floor/unit and/or counseling patient: Initial: Total time with patient: Less than 40 minutes Subsequent: Total time with patient: 25 - 34 minutes
[2023-02-19] MEDS: DULoxetine 30 MG CAPSULE PO SCH (09:55)
[2023-02-19] MEDS: MERCAPTOPURINE 50 MG TABLET PO SCH (09:55)
[2023-02-19] MEDS: LIDOCAINE PATCH TOPICAL SCH (09:55)
[2023-02-19] MEDS: DOCUSATE SODIUM 100 MG CAPSULE PO SCH ×2 (09:55→20:55)
[2023-02-19] MEDS: MAGNESIUM OXIDE 400 MG TABLET PO SCH (09:55)
[2023-02-19] MEDS ORDERED: MAGNESIUM SULFATE 8.12 MEQ in DEXTROSE 5% IN WATER 50 ML IV ONE (09:56)
[2023-02-19] MEDS ORDERED: SCOPOLAMINE 1 PATCH PATCH TOPICAL PRN (12:25)
[2023-02-19] MEDS: morphine 2 MG/ML VIAL IV PRN ×4 (14:05→21:25)
[2023-02-19] MEDS ORDERED: morphine 2 MG/ML VIAL IV PRN ×2 (19:11→19:14)
[2023-02-19] MEDS: SENNOSIDES 1 TABLET PO SCH (20:56)
[2023-02-19] MEDS: AMITRIPTYLINE 10 MG TABLET PO SCH (21:25)
[2023-02-19] MEDS: PANTOPRAZOLE 40 MG TABLET PO SCH (21:25)
[2023-02-20] MEDS: morphine 2 MG/ML VIAL IV PRN ×7 (00:24→23:34)
[2023-02-20 07:00] LABS: Hematocrit 28.3 % (40.1-51.0); Hemoglobin 9.7 g/dL (13.7-17.5)
[2023-02-20] MEDS: 0.9 % SODIUM CHLORIDE 10 ML SYRINGE IV SCH ×3 (07:22→20:10)
[2023-02-20] MEDS: INSULIN LISPRO 1 UNIT/0.01 ML UNIT SQ SCH ×4 (07:25→20:09)
[2023-02-20] MEDS: 0.9 % SODIUM CHLORIDE 1,000 ML IV SCH ×3 (07:26→19:29)
[2023-02-20 07:46] LABS: ALT/SGPT 15 U/L (<40); AST/SGOT 15 U/L (<40); Albumin 3.5 gm/dL (3.2-5.2); Albumin/Globulin Ratio 1.3 (1.0-2.3); Alkaline Phosphatase 52 U/L (39-117); Bilirubin,Direct < 0.2 mg/dL (0-0.3); Bilirubin,Total 0.3 mg/dL (0.1-1.0); Blood Urea Nitrogen 23 mg/dL (6-20); Calcium 9.1 mg/dL (8.6-10.4); Carbon Dioxide 28 mmol/L (22-30); Chloride 101 mmol/L (96-108); Globulin 2.6 gm/dL (2.2-3.7); Glomerular Filtration Rate 45; Glucose 147 mg/dL (70-105); Lactate Dehydrogenase 212 U/L (135-225); Phosphorous 4.3 mg/dL (2.5-4.5); Triglycerides 163 mg/dL (<150); Uric Acid 3.2 mg/dL (2.5-8.0)
[2023-02-20] MEDS ORDERED: MAGNESIUM SULFATE 2 GM/50 ML BAG IV SCH (08:18)
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
[2023-02-20] MEDS ORDERED: ceFAZolin 2 GM in DEXTROSE 5% IN WATER 50 ML IV SCH (08:30)
[2023-02-20] MEDS: amLODIPine 10 MG TABLET PO SCH (08:33)
[2023-02-20] MEDS: LIDOCAINE PATCH TOPICAL SCH (08:34)
[2023-02-20] MEDS: DOCUSATE SODIUM 100 MG CAPSULE PO SCH ×2 (08:34→20:09)
[2023-02-20] MEDS: DULoxetine 30 MG CAPSULE PO SCH (08:34)
[2023-02-20] MEDS: MERCAPTOPURINE 50 MG TABLET PO SCH (08:34)
[2023-02-20] MEDS: MAGNESIUM OXIDE 400 MG TABLET PO SCH (08:34)
[2023-02-20] MEDS ORDERED: DEXAMETHASONE 10 MG/ML VIAL ONE (09:12)
[2023-02-20] MEDS ORDERED: PROPOFOL 200 MG/20 ML VIAL IV ONE (09:12)
[2023-02-20] MEDS ORDERED: LIDOCAINE HCL/PF 100 MG/5 ML SYRINGE IV ONE (09:12)
[2023-02-20] MEDS ORDERED: MIDAZOLAM 2 MG/2 ML VIAL ONE (09:12)
[2023-02-20] MEDS ORDERED: fentaNYL 100 MCG/2 ML VIAL IV ONE (09:12)
[2023-02-20] MEDS ORDERED: ONDANSETRON 4 MG/2 ML VIAL ONE (09:12)
[2023-02-20] MEDS ORDERED: MAGNESIUM SULFATE 2 GM/50 ML BAG IV ONE (09:21)
[2023-02-20] MEDS ORDERED: BUPIVACAINE PF 0.5% 30 ML VIAL IJ ONE (09:41)
--- NOTE | 2023-02-20 10:41 | Brief Operative Note ---
Brief Operative Note Date of procedure: 02/20/23 Pre-op diagnosis: Left ankle bimalleolar closed fracture w syndesmosis injury Post-op diagnosis: same Procedure: Open treatment internal fixation of left closed bimalleolar ankle fracture with syndesmosis fixation Grafts/Implants: Yes (arthrex tightrope x 2, ) Anesthesia: spinal Findings: as above Complications: none Surgeon: Alan Pena Inspector Repairer [place]: Natan Oliver Estimated blood loss (cc): 30 Specimens Removed/Pathology: none sent Condition: stable Disposition: PACU
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
[2023-02-20] MEDS ORDERED: MEPERIDINE 25 MG/ML VIAL IV PRN (12:28)
[2023-02-20] MEDS ORDERED: fentaNYL 100 MCG/2 ML VIAL IV PRN (12:28)
[2023-02-20] MEDS ORDERED: PROMETHAZINE 25 MG/ML VIAL IV PRN (12:28)
[2023-02-20] MEDS ORDERED: ONDANSETRON 4 MG/2 ML VIAL IV PRN (12:28)
[2023-02-20] MEDS ORDERED: IPRATROPIUM/ALBUTEROL 3 ML AMPUL.NEB NEB PRN (12:28)
--- NOTE | 2023-02-20 12:45 | Nephrology Progress Note ---
SUBJECTIVE Subjective Patient information: Note initiated : 02/20/23 at 12:41 pm Service Date, if different from initiated Date: [] Patient: Prakash Robles 52 y/o M admitted on 02/15/23 for Left Ankle ORIF of Lateral Malleolus Fracture with. Chief Complaint: [] Principal diagnosis: ARF and Acute blood loss anemia with high MCV Interval history: Based on high urine volumes and slowing of renal recovery, I believe he started out as prerenal azotemia but also had an element of ATN for which he now has a post ATN diuresis. Serum Creatinine Brief Operative Note Date of procedure: 02/20/23 Pre-op diagnosis: Left ankle bimalleolar closed fracture w syndesmosis injury Post-op diagnosis: same Procedure: Open treatment internal fixation of left closed bimalleolar ankle fracture with syndesmosis fixation Grafts/Implants: Yes (arthrex tightrope x 2, ) Anesthesia: spinal Findings: as above Complications: none Surgeon: Alan Pena Coach Wirer: Natan Oliver Estimated blood loss (cc): 30 Specimens Removed/Pathology: none sent Condition: stable Disposition: PACU Pertinent ROS: To OR this AM Additional PMFSH (Level 3 Only): N/A Constitutional Vitals: Vital Signs Temp Pulse Resp BP Pulse Ox O2 Del Method O2 Flow Rate 36.5 C 84 18 137/87 98 Room Air 2 02/20/23 06:45 02/20/23 06:45 02/20/23 07:30 02/20/23 06:45 02/20/23 07:30 02/20/23 07:30 02/20/23 12:39 Period Temp Pulse Resp BP Sys/Barron Pulse Ox O2 Del Method O2 Flow Rate Last 24 Hr 36.2 C-37.1 C 79-88 14-20 127-162/74-94 95-99 Room Air-Room Air 2-10 Intake and Output 02/20/23 02/20/23 02/20/23 03:59 11:59 19:59 Intake Total 500 900 Output Total 1000 850 Balance -500 50 Weight 88.813 kg Intake & Output: Intake & Output 02/20/23 02/20/23 02/20/23 03:59 11:59 19:59 Intake Total 500 900 Output Total 1000 850 Balance -500 50 Weight 88.813 kg Intake: IV 100 Ancef 2 gm In Dextrose 5% in 50 Water 50 ml @ 100 mls/hr IV PREOP YEFRI Rx#:[id number] Oral 500 IV - Manual Only 800 Output: Void Amount 1000 850 Other: Urine Appearance Clear Urine Color Yellow General appearance: average body habitus Head Head exam: Present normocephalic Eye Eye exam: Present EOMI and PERRL ENT ENT exam: Present mucous membranes moist Neck Neck exam: Present normal inspection Respiratory Respiratory exam: Present CTAB Cardiovascular Cardiovascular exam: Present normal rate and rhythm, +S1 and +S2 GI/Abdominal GI/Abdominal exam: Present normal bowel sounds Extremities Exam Extremities exam: Present tenderness and Foot pink and warm; Absent pedal edema Neurological Exam Neurological exam: Present CN II-XII intact and oriented X3 Psychiatric Psychiatric exam: Present normal affect Skin Skin exam: Present dry and intact A/P Assessment and plan (1) CHAD (acute kidney injury): Assessment and plan: * The hat trick of ARF => ACEi and Dehydration (HCTZ and poor po intake and vomiting from pain) + KOWALSKI II inhibitors and NSAIDS = ARF from decreased renal perfusion. * Probably has some ATN with SCr "stuck" at 2 mg/dl Plan: Avoid NASIDS/KOWALSKI II inhibitor and RAASI therapy Status: Acute Comment: Will get better No objection to surgery as long as you avoid NSAIDs/KOWALSKI II inhibitors and keep hydrated with NS Probably has an element of ATN with polyuria (2) Anemia: Assessment and plan: Says he quite drinking but MCV > 100 makes me doubt this. NSAIDS/KOWALSKI II inhibitors scream gastritis or gastric ulcer Guiaic positive stool Plan: Primary service has given S/P pRBCs x 2 Status: Acute Comment: Suspect NSAID induced gastritis/ulcer Not anemia of CKD as he does not have CKD Retic count low, iron borderline, B12/Folate WNL but MCV increased (?EtOH) Narrative A/P Narrative: Poly Rx ARF as outlined above. Avoid dehydration, RAASI therapy and NSAIDS all at once. I wouldn't use NSAIDs or Kowalski II inhibitors in a patient with HgB 12 => 7 until he has an EGD and his GFR return to normal. OK for surgery and or discharge from renal point af view Time Spent With Patient Time: Total time spent is greater than 50% in coordination of care (as documented) at patient's floor/unit and/or counseling patient: Initial: Total time with patient: Less than 40 minutes Subsequent: Total time with patient: 25 - 34 minutes
[2023-02-20] MEDS ORDERED: oxyCODONE HCL 5 MG TABLET PO SCH (12:51)
[2023-02-20] MEDS: oxyCODONE HCL 5 MG TABLET PO PRN ×3 (14:01→22:26)
--- NOTE | 2023-02-20 15:46 | XRay Report ---
INDICATION: post op TECHNIQUE: AP, oblique, lateral left ankle COMPARISON: Preoperative evaluation dated 02/11/2023 FINDINGS: Reduction and internal fixation of Jarrett C distal fibular fracture. There is plate and screw fixation on the distal fibula. Alignment is anatomic. There is tightrope fixation for treatment of syndesmotic tear. There is a small cancellous screw within the medial malleolus. Alignment is essentially anatomic and improved. IMPRESSION: [Reduction and internal fixation of Jarrett C left ankle fracture Interpreted and Authenticated by: Helder Madera 02/20/23
[2023-02-20] MEDS: PANTOPRAZOLE 40 MG TABLET PO SCH (20:09)
[2023-02-20] MEDS: AMITRIPTYLINE 10 MG TABLET PO SCH (20:09)
[2023-02-20] MEDS: SENNOSIDES 1 TABLET PO SCH (20:11)
[2023-02-21] MEDS: morphine 2 MG/ML VIAL IV PRN ×4 (01:50→11:17)
[2023-02-21] MEDS: oxyCODONE HCL 5 MG TABLET PO PRN ×3 (02:00→09:34)
[2023-02-21 06:17] LABS: Hematocrit 26.2 % (40.1-51.0); Hemoglobin 9.1 g/dL (13.7-17.5)
[2023-02-21] MEDS: 0.9 % SODIUM CHLORIDE 10 ML SYRINGE IV SCH (06:35)
[2023-02-21 07:07] LABS: ALT/SGPT 17 U/L (<40); AST/SGOT 18 U/L (<40); Albumin 3.8 gm/dL (3.2-5.2); Albumin/Globulin Ratio 1.4 (1.0-2.3); Alkaline Phosphatase 55 U/L (39-117); Bilirubin,Direct < 0.2 mg/dL (0-0.3); Bilirubin,Total 0.3 mg/dL (0.1-1.0); Blood Urea Nitrogen 29 mg/dL (6-20); Calcium 9.1 mg/dL (8.6-10.4); Carbon Dioxide 25 mmol/L (22-30); Chloride 96 mmol/L (96-108); Globulin 2.7 gm/dL (2.2-3.7); Glomerular Filtration Rate 42; Glucose 230 mg/dL (70-105); Lactate Dehydrogenase 262 U/L (135-225); Phosphorous 3.6 mg/dL (2.5-4.5); Triglycerides 108 mg/dL (<150); Uric Acid 3.2 mg/dL (2.5-8.0)
[2023-02-21] MEDS: INSULIN LISPRO 1 UNIT/0.01 ML UNIT SQ SCH ×2 (08:10→12:33)
[2023-02-21] MEDS ORDERED: MAGNESIUM SULFATE 2 GM/50 ML BAG IV ONE (08:14)
--- NOTE | 2023-02-21 09:05 | Operative Note ---
DATE OF OPERATION: 02/20/2023 PREOPERATIVE DIAGNOSIS: Left ankle bimalleolar fracture with probable syndesmosis injury. POSTOPERATIVE DIAGNOSIS: Left ankle bimalleolar fracture with syndesmosis injury. PROCEDURE PERFORMED: Open treatment and internal fixation of the left closed bimalleolar ankle fracture with fixation of the syndesmosis injury using two TightRope implants. SURGEON: Alan Pena M.D. HOME HEALTH PHYSICAL THERAPIST: Natan Oliver PA-C. This providers expertise and technical skill were required throughout the case. The PA assisted with preoperative coordination, intraoperative retraction, wound closure, and dressing and splint application, as well as postoperative documentation and care coordination. ANESTHESIA: Spinal. DRAINS: None. SPECIMENS: None. COMPLICATIONS: None. ESTIMATED BLOOD LOSS: Minimal. POSTOPERATIVE CONDITION: Stable. INDICATIONS FOR SURGERY: This is a 52-year-old male who, approximately a week and a half ago, had injured his ankle, had severe pain and inability to bear weight. He presented to the Emergency Department and x-rays were taken, which showed a bimalleolar fracture, a Jarrett C type, which was suggestive of also having a syndesmosis injury. He was scheduled to undergo surgery approximately 5 days ago, but had to be canceled for medical reasons including acute renal failure and anemia. He had been admitted by the hospitalist service and then had been cleared for surgery. FINDINGS AT SURGERY: There was a Jarrett C fracture of the fibula. There was an unusual split fracture off of the medial malleolus. Post-fixation of the medial and lateral malleoli revealed still significant syndesmosis widening. Post-fixation of the syndesmosis showed anatomic alignment of the mortise. PROCEDURE IN DETAIL: The patient had been seen preoperatively and informed consent had been obtained after discussion of risks and benefits of surgery. Risks including, but not limited to, bleeding, infection, this being particularly increased given his diabetes that is not particularly well controlled, injury to nerves, blood vessels, other surrounding structures, anesthetic risks; nonunion or malunion of the fracture, this being increased given his smoking, which he was strongly encouraged to quit; failure of hardware fixation; possibility of needing further surgery. He understood these risks and wished to proceed. Correct operative site was marked in the preoperative holding, and the patient received spinal anesthesia. He was taken to the operating room and the left lower extremity was carefully prepped and draped in the normal sterile fashion and a timeout was performed verifying patient name, operative site, and plan. A sterile glove was placed over the toes and then this was wrapped with Coban. He had multiple surgical scars on the foot and ankle from prior injury and these were in multiple orientations. I did not want to leave a sharp angle of the skin with his other scars and yet his other scars were not viable for this procedure, so I did distally try to start at a perpendicular angle to the previous scar heading anteriorly and then curving this in line with the fibula and extending it proximally with a scalpel through skin and subcutaneous tissue. Careful blunt dissection was taken down onto bone and then periosteum was incised with the Bovie. We then used the AO elevator to expose subperiosteally the fracture site. Fracture hematoma was curetted out and then a reduction was performed with lobster claw clamps. Even though this was only a week old, it was somewhat challenging to reduce. Once I was able to reduce it I checked with fluoroscopy. There was a large posterior split extending up the fibula so I felt a longer plate to make sure we got passed the fracture would be needed. We chose the Arthrex 8-hole plate. This was then placed best fit over the fibula distally and then clamped onto bone. We checked with fluoroscopy and verified position. I then drilled and placed a unicortical locking screw in the distal most hole of the fibular plate. I then adjusted proximally, so the plate would be centered over the fibula anterior to posterior and then clamped this to the bone. I then drilled and placed a bicortical locking screw in the hole one hole down from the most proximal hole. We then checked with fluoroscopy and liked the plate position and then proceeded to start filling holes distally starting from the top. I did elect to leave the proximal hole open as this is unnecessary for fixation and also would decrease the stress riser at the end of the plate. I placed a total of 4 proximal bicortical locking screws. We then went distally and filled the distal cluster with unicortical locking screws. Of note, prior to placement of the plate after I had reduction, I did place an interfragmentary compression screw drilling near cortex with a 3.5 drill and then a far cortex with a 2.5 drill perpendicular to the fracture line and then a nonlocking cortical screw was placed. This held our initial fixation and also helped compress the fracture. At this point, I moved to the medial side. A vertical incision was made over the medial malleolus with a scalpel through skin and subcutaneous tissue, continued sharply down onto bone. A Bovie was used to expose the fracture site. At this point, we noted almost a coronal split of the medial malleolus that was somewhat of an unusual fracture pattern. The fragment was small. I curetted out the fracture site. I drilled a small hole proximal to fracture site and then a reduction tenaculum was used. I did not feel the piece was large enough to accept two screws without fragmentation, so I used a guide pin for the 4-0 cannulated and drilled this as perpendicular to the fracture line as I could. This gave the screw quite an anterior to posterior trajectory and this only measured 36 mm. I went ahead and chose a long thread 4.0 cannulated screw with a washer and this was advanced until it was firmly compressed against the fragment. We removed the guide pin. I then checked with fluoroscopy, the fracture appeared well aligned medial and laterally; however, the syndesmosis was widened then the medial clear space was definitely increased, which verified indeed we needed to use a syndesmosis fixation. A Jarrett clamp was placed on the plate laterally and then on tibial bone medially and then clamped. We checked with fluoroscopy and this reduced the syndesmosis nicely. I then drilled with the drill for the Arthrex TightRope implant. This was done parallel with the joint line. This was passed through 4 cortices and then the implant was passed through the drill hole and flipped on the far side and then the tension sutures were tensioned as tightly as possible, and cut. I repeated this with the second implant in the same fashion. We then removed the Jarrett clamp. Final fluoroscopy images were taken, AP and lateral views, saved and printed. We then irrigated copiously with IrriSept, after a minute irrigated copiously with saline. Laterally, I tried to close the periosteum over the plate with 0 Vicryl. This was somewhat poor quality tissue, but I was able to get most of the plate covered. The distal cluster was too subcutaneous to be able to get closure over. A 2-0 Monocryl was then used for subcutaneous closure and then mitchell for skin. Medially, we used 0 Vicryl to close the periosteum and then 2-0 Monocryl for subcutaneous, and mitchell for skin. Xeroform and sterile dressings were applied. Tourniquet was released. The patient was placed in the tall fracture boot, awakened, extubated, and transferred to recovery in stable condition. BJB:ray Job ID: [id number] Doc ID: [id number] [facility]
--- NOTE | 2023-02-21 09:05 | Nephrology Progress Note ---
SUBJECTIVE Subjective Patient information: Note initiated : 02/21/23 at 9:02 am Service Date, if different from initiated Date: [] Patient: Prakash Robles 52 y/o M admitted on 02/15/23 for Left Ankle ORIF of Lateral Malleolus Fracture with. Chief Complaint: [bad labs] Principal diagnosis: ARF and Acute blood loss anemia with high MCV Interval history: Surgical repair yesterday. Complain of lack of adequate pain control but NOT PERMITTED NSAIDS OR KOWALSKI 2 INHIBITORS DUE TO RECENT ARF/ATN WOULD ALSO AVOID RAASI THERAPY Vital Signs Temp Pulse Pulse Pulse Resp BP BP 02/21/23 07:35 37.1 C 95 H 18 119/81 02/21/23 04:00 37.1 C 93 H 16 126/83 02/20/23 23:40 36.9 C 91 H 16 132/84 02/20/23 13:45 16 02/20/23 18:38 36.8 C 98 H 18 139/80 02/20/23 13:45 83 137/84 02/20/23 14:30 94 H 151/89 02/20/23 14:41 95 H 132/93 02/20/23 14:45 95 H 144/86 02/20/23 14:50 93 H 140/86 02/20/23 14:16 88 125/63 02/20/23 14:34 95 H 140/89 02/20/23 14:53 140/86 02/20/23 14:55 92 H 140/86 02/20/23 13:21 36.1 C 82 12 02/20/23 13:20 82 13 132/82 02/20/23 13:16 78 17 128/83 02/20/23 13:11 80 8 L 133/92 02/20/23 13:05 79 7 L 136/86 02/20/23 13:01 80 7 L 135/86 02/20/23 12:55 80 10 L 121/74 02/20/23 12:50 80 19 124/73 02/20/23 12:46 79 14 124/77 02/20/23 12:40 72 14 149/88 02/20/23 12:35 72 9 L 141/85 02/20/23 12:30 68 8 L 155/96 02/20/23 12:25 73 6 L 155/93 02/20/23 12:20 77 9 L 143/92 02/20/23 12:15 76 12 147/105 02/20/23 12:10 75 8 L 139/89 02/20/23 12:05 78 15 147/89 02/20/23 12:00 70 6 L 141/89 02/20/23 11:55 74 8 L 148/86 02/20/23 11:50 69 6 L 148/96 02/20/23 11:45 75 6 L 150/98 02/20/23 11:40 70 6 L 147/89 02/20/23 11:35 71 5 L 138/79 02/20/23 11:30 66 5 L 129/77 02/20/23 11:25 66 126/79 02/20/23 11:20 64 5 L 119/79 02/20/23 11:15 66 5 L 117/69 02/20/23 11:10 67 4 L 119/64 02/20/23 11:06 68 5 L 117/69 02/20/23 13:09 02/20/23 12:54 02/20/23 12:39 02/20/23 12:25 02/20/23 12:04 02/20/23 11:49 02/20/23 11:34 02/20/23 11:19 02/20/23 11:04 Pulse Ox O2 Del Method O2 Flow Rate 02/21/23 07:35 98 Room Air 02/21/23 04:00 94 Room Air 02/20/23 23:40 93 Room Air 02/20/23 13:45 94 Nasal Cannula 2 02/20/23 18:38 98 Room Air 02/20/23 13:45 100 Room Air 02/20/23 14:30 94 Room Air 02/20/23 14:41 94 Room Air 02/20/23 14:45 100 Room Air 02/20/23 14:50 100 Room Air 02/20/23 14:16 100 Room Air 02/20/23 14:34 96 Room Air 02/20/23 14:53 99 02/20/23 14:55 99 Room Air 02/20/23 13:21 94 Nasal Cannula 2 02/20/23 13:20 93 02/20/23 13:16 96 02/20/23 13:11 93 02/20/23 13:05 95 02/20/23 13:01 90 02/20/23 12:55 99 02/20/23 12:50 100 02/20/23 12:46 98 02/20/23 12:40 94 02/20/23 12:35 92 02/20/23 12:30 92 02/20/23 12:25 92 02/20/23 12:20 94 02/20/23 12:15 90 Nasal Cannula 2 02/20/23 12:10 88 L 02/20/23 12:05 97 02/20/23 12:00 90 02/20/23 11:55 99 Oxymask 6 02/20/23 11:50 94 02/20/23 11:45 97 02/20/23 11:40 99 02/20/23 11:35 100 02/20/23 11:30 100 02/20/23 11:25 98 02/20/23 11:20 99 02/20/23 11:15 98 02/20/23 11:10 99 Oxymask 10 02/20/23 11:06 100 Oxymask 10 02/20/23 13:09 2 02/20/23 12:54 2 02/20/23 12:39 2 02/20/23 12:25 2 02/20/23 12:04 2 02/20/23 11:49 10 02/20/23 11:34 10 02/20/23 11:19 10 02/20/23 11:04 10 Intake and Output 02/20/23 02/21/23 02/21/23 19:59 03:59 11:59 Intake Total 240 1000 Output Total 1824 2049 1424 Balance -1584 Intake: IV 1000 Sodium Chloride 0.9% 1,000 ml @ 1000 75 mls/hr IV .[id number] [facility] Rx#: [id number] Oral 240 Output: Void Amount 1824 2049 1424 Other: Meal Lunch Percent of Meal Consumed 100% Feeding Ability Independent Urine Appearance Clear Clear Clear Urine Color Yellow Yellow Yellow Urine Odor Normal Normal Weight 88.541 kg Current Medications Albuterol/Ipratropium (Ipratropium/Albuterol 3 Ml Ampul.Neb) 3 ml NEB Q4HRT PRN PRN Reason: Wheezing Amitriptyline HCl (Amitriptyline 10 Mg Tablet) 10 mg PO QHS [facility] Last Admin: 02/20/23 20:09 Dose: 10 mg Amlodipine Besylate (Amlodipine 10 Mg Tablet) 10 mg PO DAILY [facility] Last Admin: 02/20/23 08:33 Dose: 10 mg Dextrose (Dextrose 50% 50 Ml Vial) 0 ml IV UD PRN PRN Reason: Per Sliding Scale Diagnostic Test (Pha) (Accu-Chek 1 Each Strip) 1 each FS ACHS [facility] Last Admin: 02/21/23 08:10 Dose: 1 each Docusate Sodium (Docusate Sodium 100 Mg Capsule) 100 mg PO BID [facility] Last Admin: 02/20/23 20:09 Dose: 100 mg Duloxetine HCl (Duloxetine 30 Mg Capsule) 60 mg PO DAILY [facility] Last Admin: 02/20/23 08:34 Dose: 60 mg Glucose (Dextrose 31 Gm Oral.Susp) 15 gm PO PRN PRN PRN Reason: Hypoglycemia Hydralazine HCl (Hydralazine 20 Mg/Ml Vial) 10 mg IV Q4-6HP PRN PRN Reason: Hypertension Sodium Chloride (Sodium Chloride 0.9%) 1,000 mls @ 75 mls/hr IV .[id number] [facility] Last Infusion: 02/21/23 08:08 Dose: Infused Magnesium Sulfate (Magnesium Sulfate) 2 gm in 50 mls @ 25 mls/hr IV ONCE ONE Stop: 02/21/23 10:13 Insulin Human Lispro (Insulin Lispro 1 Unit/0.01 Ml Unit) 0 unit SQ [facility]; Protocol Last Admin: 02/21/23 08:10 Dose: 3 units Lidocaine (Lidocaine Patch) 1 patch TOPICAL QDAY [facility] Last Admin: 02/20/23 08:34 Dose: Not Given Magnesium Oxide (Magnesium Oxide 400 Mg Tablet) 400 mg PO DAILY [facility] Last Admin: 02/20/23 08:34 Dose: Not Given Mercaptopurine (Mercaptopurine 50 Mg Tablet) 50 mg PO QDAY [facility] Last Admin: 02/20/23 08:34 Dose: Not Given Morphine Sulfate (Morphine 2 Mg/Ml Vial) 0 mg IV Q3HP PRN; Protocol PRN Reason: Per Pain Protocol Last Admin: 02/21/23 04:56 Dose: 2 mg Ondansetron HCl (Ondansetron 4 Mg/2 Ml Vial) 4 mg IV Q6HP PRN PRN Reason: Nausea And Vomiting Last Admin: 02/16/23 18:03 Dose: 4 mg Oxycodone HCl (Oxycodone Hcl 5 Mg Tablet) 5 - 10 mg PO Q4HP PRN; Protocol PRN Reason: Per Pain Protocol Last Admin: 02/21/23 05:35 Dose: 10 mg Pantoprazole Sodium (Pantoprazole 40 Mg Tablet) 40 mg PO HS [facility] Last Admin: 02/20/23 20:09 Dose: 40 mg Senna (Sennosides 1 Tablet) 2 tab PO HS [facility] Last Admin: 02/20/23 20:11 Dose: Not Given Sodium Chloride (0.9 % Sodium Chloride 10 Ml Syringe) 10 ml IV Q8 [facility] Last Admin: 02/21/23 06:35 Dose: Not Given Trazodone HCl (Trazodone Hcl 50 Mg Tablet) 25 mg PO HSP PRN PRN Reason: Insomnia Laboratory Last Values WBC 4.5 K/mcL (4.5-11.0) 02/19/23 05:43 RBC 2.91 M/mcL (4.63-6.08) L 02/19/23 05:43 Hgb 9.1 g/dL (13.7-17.5) L 02/21/23 05:33 Hct 26.2 % (40.1-51.0) L 02/21/23 05:33 MCV 93.8 fL (80.0-100.0) 02/19/23 05:43 MCH 32.0 pg (26.0-34.0) 02/19/23 05:43 MCHC 34.1 g/dL (31.0-36.0) 02/19/23 05:43 RDW 16.3 % (11.5-14.5) H 02/19/23 05:43 Plt Count 282 K/mcL (140-440) 02/19/23 05:43 MPV 9.7 fL (8.8-12.5) 02/19/23 05:43 Immature Gran % (Auto) 0.2 % (0.0-0.5) 02/19/23 05:43 Neut % (Auto) 54.4 % (38.0-78.0) 02/19/23 05:43 Lymph % (Auto) 29.3 % (15.5-49.0) 02/19/23 05:43 Bee % (Auto) 12.8 % (1.0-12.0) H 02/19/23 05:43 Eos % (Auto) 2.9 % (0.0-7.0) 02/19/23 05:43 Baso % (Auto) 0.4 % (0.0-2.0) 02/19/23 05:43 Lymph # (Auto) 1.31 K/mcL (1.50-4.80) L 02/19/23 05:43 Bee # (Auto) 0.57 K/mcL (0.10-0.90) 02/19/23 05:43 Eos # (Auto) 0.13 K/mcL (0.00-0.70) 02/19/23 05:43 Baso # (Auto) 0.02 K/mcL (0.00-0.30) 02/19/23 05:43 Immature Gran # 0.01 K/mcl (0.00-0.05) 02/19/23 05:43 Absolute Neutrophils 2.43 K/mcL (1.80-8.00) 02/19/23 05:43 Absolute Retic 0.03 M/mcL (0.03-0.11) 02/18/23 06:02 Percent Retic 1.47 % (0.50-1.50) 02/18/23 06:02 Sodium 134 mmol/L (133-145) 02/21/23 05:33 Potassium 4.5 mmol/L (3.3-5.1) 02/21/23 05:33 Chloride 96 mmol/L (96-108) 02/21/23 05:33 Carbon Dioxide 25 mmol/L (22-30) 02/21/23 05:33 Anion Gap 13.0 (8.0-16.0) 02/21/23 05:33 BUN 29 mg/dL (6-20) H 02/21/23 05:33 Creatinine 1.8 mg/dL (0.7-1.2) H 02/21/23 05:33 GFR Calculation 42 02/21/23 05:33 Glucose 230 mg/dL (70-105) H 02/21/23 05:33 Hemoglobin A1c 8.6 % Hgb (4.0-6.0) H 02/16/23 05:18 Estim Average Glucose 200 mg/dL 02/16/23 05:18 Uric Acid 3.2 mg/dL (2.5-8.0) 02/21/23 05:33 Calcium 9.1 mg/dL (8.6-10.4) 02/21/23 05:33 Phosphorus 3.6 mg/dL (2.5-4.5) 02/21/23 05:33 Magnesium 1.5 mg/dL (1.6-2.5) L 02/21/23 05:33 Iron 54 ug/dL (61-157) L 02/18/23 06:01 TIBC 214 ug/dl (228-428) L 02/15/23 15:06 Unsat Iron Binding 172 mcg/dL (112-346) 02/15/23 15:06 Transferrin % Sat 20 % (20-50) 02/15/23 15:06 Ferritin 218.1 ng/mL (30.0-400.0) 02/18/23 06:01 Total Bilirubin 0.3 mg/dL (0.1-1.0) 02/21/23 05:33 Direct Bilirubin < 0.2 mg/dL (0-0.3) 02/21/23 05:33 GGT 30 U/L (8-61) 02/21/23 05:33 AST 18 U/L (<40) 02/21/23 05:33 ALT 17 U/L (<40) 02/21/23 05:33 Alkaline Phosphatase 55 U/L (39-117) 02/21/23 05:33 Lactate Dehydrogenase 262 U/L (135-225) H 02/21/23 05:33 Total Protein 6.5 gm/dL (5.9-8.4) 02/21/23 05:33 Albumin 3.8 gm/dL (3.2-5.2) 02/21/23 05:33 Globulin 2.7 gm/dL (2.2-3.7) 02/21/23 05:33 Albumin/Globulin Ratio 1.4 (1.0-2.3) 02/21/23 05:33 Triglycerides 108 mg/dL (<150) 02/21/23 05:33 Vitamin B12 599.1 pg/mL (232.0-1245.0) 02/18/23 06:01 Folate 6.8 ng/mL (4.2-19.9) 02/18/23 06:01 Urine Color Yellow 02/15/23 12:28 Urine Appearance Clear (Clear) 02/15/23 12:28 Urine pH 5.0 (5.0-9.0) 02/15/23 12:28 Ur Specific [place] 1.006 (1.000-1.035) 02/15/23 12:28 Urine Protein Negative mg/dL (Negative) 02/15/23 12:28 Urine Glucose (UA) Negative mg/dL (Negative) 02/15/23 12:28 Urine Ketones Negative mg/dL (Negative) 02/15/23 12:28 Urine Occult Blood 0.03 mg/dL (Negative) 02/15/23 12:28 Urine Nitrate Negative (Negative) 02/15/23 12:28 Urine Bilirubin Negative mg/dL (Negative) 02/15/23 12:28 Urine Urobilinogen Negative mg/dL 02/15/23 12:28 Ur Leukocyte Esterase Negative /uL (Negative) 02/15/23 12:28 Urine RBC 1 /hpf (0-3) 02/15/23 12:28 Urine WBC 2 /hpf (0-4) 02/15/23 12:28 Ur Squamous Epith Cells < 1 /hpf (0-4) 02/15/23 12:28 Ur Transition Epith Cell < 1 /hpf (0-2) 02/15/23 12:28 Urine Bacteria None /hpf (0) 02/15/23 12:28 Hyaline Casts 1 /lph (0-2) 02/15/23 12:28 Urine Mucus Few /hpf (None) A 02/15/23 12:28 Ur Culture Indicated? No 02/15/23 12:28 Stool Occult Bld Immuno Positive (Negative) A 02/17/23 23:00 COMPLAINING OF LACK OF ADEQUATE PAIN CONTROL. Pertinent ROS: Pain issues Additional PMFSH (Level 3 Only): n/a Constitutional Vitals: Vital Signs Temp Pulse Resp BP Pulse Ox O2 Del Method O2 Flow Rate 37.1 C 95 H 18 119/81 98 Room Air 2 02/21/23 07:35 02/21/23 07:35 02/21/23 07:35 02/21/23 07:35 02/21/23 07:35 02/21/23 07:35 02/20/23 13:45 Period Temp Pulse Resp BP Sys/Barron Pulse Ox O2 Del Method O2 Flow Rate Last 24 Hr 36.1 C-37.1 C 64-98 4-19 117-155/63-105 88-100 Nasal Cannula- Room Air 2-10 Intake and Output 02/20/23 02/21/23 02/21/23 19:59 03:59 11:59 Intake Total 240 1000 Output Total 18245 Balance -1584 Weight 88.541 kg Intake & Output: Intake & Output 02/20/23 02/21/23 02/21/23 19:59 03:59 11:59 Intake Total 240 1000 Output Total 1824 2049 1424 Balance -1584 Weight 88.541 kg Intake: IV 1000 Sodium Chloride 0.9% 1,000 ml @ 1000 75 mls/hr IV .[id number] [facility] Rx#: [id number] Oral 240 Output: Void Amount 1824 2049 1424 Other: Meal Lunch Percent of Meal Consumed 100% Feeding Ability Independent Urine Appearance Clear Clear Clear Urine Color Yellow Yellow Yellow Urine Odor Normal Normal General appearance: average body habitus Head Head exam: Present normal inspection Neck Neck exam: Present normal inspection Respiratory Respiratory exam: Present CTAB Cardiovascular Cardiovascular exam: Present normal rate and rhythm, +S1 and +S2; Absent +S3 or +S4 GI/Abdominal GI/Abdominal exam: Present normal bowel sounds Extremities Exam Additional comments: Left leg in ortho device No edema in right Neurological Exam Additional comments: non-focal Psychiatric Psychiatric exam: Present agitated Skin Skin exam: Present dry, normal color and warm A/P Assessment and plan (1) CHAD (acute kidney injury): Assessment and plan: * The hat trick of ARF => ACEi and Dehydration (HCTZ and poor po intake and vomiting from pain) + KOWALSKI II inhibitors and NSAIDS = ARF from decreased renal perfusion. * Probably has some ATN with SCr "stuck" at 2 mg/dl Plan: Avoid NASIDS/KOWALSKI II inhibitor and RAASI therapy Status: Acute Comment: Will get better No objection to surgery as long as you avoid NSAIDs/KOWALSKI II inhibitors and keep hydrated with NS Probably has an element of ATN with polyuria (2) Anemia: Assessment and plan: Says he quite drinking but MCV > 100 makes me doubt this. NSAIDS/KOWALSKI II inhibitors scream gastritis or gastric ulcer Guiaic positive stool Plan: Primary service has given S/P pRBCs x 2 Status: Acute Comment: Suspect NSAID induced gastritis/ulcer Not anemia of CKD as he does not have CKD Retic count low, iron borderline, B12/Folate WNL but MCV increased (?EtOH) Narrative A/P Narrative: Poly Rx ARF as outlined above. Avoid dehydration, RAASI therapy and NSAIDS all at once. I wouldn't use NSAIDs or Kowalski II inhibitors in a patient with HgB 12 => 7 until he has an EGD and his GFR return to normal. OK for surgery and or discharge from renal point af view Plan of Treatment: Follow up with nephrology 1 month post discharge Avoid dehydration, RAASI therapy and NSAIDS all at once. I wouldn't use NSAIDs or Kowalski II inhibitors in a patient with HgB 12 => 7 until he has an EGD and his GFR return to normal. Time Spent With Patient Time: Total time spent is greater than 50% in coordination of care (as documented) at patient's floor/unit and/or counseling patient: Subsequent: Total time with patient: Less than 25 minutes
[2023-02-21] MEDS: DULoxetine 30 MG CAPSULE PO SCH (09:21)
[2023-02-21] MEDS: amLODIPine 10 MG TABLET PO SCH (09:21)
[2023-02-21] MEDS: DOCUSATE SODIUM 100 MG CAPSULE PO SCH (09:21)
[2023-02-21] MEDS: MAGNESIUM OXIDE 400 MG TABLET PO SCH (09:22)
[2023-02-21] MEDS: LIDOCAINE PATCH TOPICAL SCH (09:22)
[2023-02-21] MEDS: MERCAPTOPURINE 50 MG TABLET PO SCH (09:22)
[2023-02-21] MEDS: 0.9 % SODIUM CHLORIDE 1,000 ML IV SCH (11:44)
== END 2023-02-21 13:05 | disposition home or self-care (01) | DRG 982 ==
LOC: ED 10:16 → MEDSUR 14:37
PROVIDERS: ADMIT Internal Medicine; ATTEND Internal Medicine